=== PATIENT | female | born 1965 | race Caucasian/White ===

== ENCOUNTER 2017-07-01 07:31 | Day surgery (SDC) | payer BC ==
[~2017-07-01 07:31] MED LIST: Lactated Ringers 1,000 ML IV SCH
[2017-07-01] MEDS ORDERED: fentaNYL 100 MCG/2 ML SDV ONE (11:33)
[2017-07-01] MEDS ORDERED: Midazolam 1 MG/ML 2 ML SDV ONE (11:33)
[2017-07-01] MEDS ORDERED: Propofol 200 MG/20 ML SDV ONE ×2 (11:33→12:09)
--- NOTE | 2017-07-01 18:48 | OR ---
PREOPERATIVE DIAGNOSIS: Screening colonoscopy. POSTOPERATIVE DIAGNOSIS: Transverse colon flattish polyp, removed. PLANNED PROPOSED: Total flexible colonoscopy. PROCEDURE DONE: Total flexible colonoscopy with polypectomy x1. INDICATION: This is a 52-year-old female who comes in for her first colonoscopic exam for screening purposes. There is a questionable history of her mother having had polyps. She denies any symptomatology herself. There is a negative family history for colon cancer. TECHNIQUE: The patient was brought to the endoscopy suite, placed in left lateral decubitus position. She was sedated per [employer] with propofol. The flexible video colonoscope was then passed transanally and under visualization advanced to the cecum. Examination revealed a normal ascending colon. In the proximal transverse colon, there was a flattish polyp, removed with 2 bites of the cold biopsy forceps and submitted for pathologic examination. The remainder of the descending colon was unremarkable. She had a rare occasional diverticular orifices noted in the sigmoid region and the rectum was normal, and the scope was then withdrawn. She tolerated procedure well. FINAL IMPRESSION: 1. Proximal transverse colon polyp, removed. 2. Minimal sigmoid diverticulosis. PLAN: She will be sent a letter with pathology report and I felt that she should consider, and I would recommend a followup examination again in 5 years' time and possibly every 5 years thereafter depending on the type of polyp, especially if there is a family history of polyps, she would want to keep a close eye on her colon. SCM: 07/01/2017 12:27:52 MODL: 07/01/2017 18:23:50 /[id number]
--- NOTE | 2017-07-19 08:26 | LETTER ---
07/19/2017 RE: ARABELLA GREGG : 1965 Dear Arabella, The polyp removed from your colon was a benign, serrated adenoma, which is considered a precancerous type polyp. Because of this finding, I feel that you should continue to have your colon evaluated every 5 years hereafter to make sure you are not forming any new polyps to help prevent you from getting a colon cancer. If you have any further questions regarding this, feel free to call. Respectfully,
== END 2017-07-01 13:35 | disposition home or self-care (01) ==
LOC: VM.SDS 07:31
PROVIDERS: ATTEND Surgery
DX: Z12.11 Encounter for screening for malignant neoplasm of colon (principal); D12.6 Benign neoplasm of colon, unspecified; K57.30 Diverticulosis of large intestine without perforation or abscess without bleeding; E78.2 Mixed hyperlipidemia; E89.0 Postprocedural hypothyroidism; G43.709 Chronic migraine without aura, not intractable, without status migrainosus; G89.29 Other chronic pain; M25.551 Pain in right hip; E66.3 Overweight; Z88.1 Allergy status to other antibiotic agents; Z88.8 Allergy status to other drugs, medicaments and biological substances; Z91.013 Allergy to seafood; F17.210 Nicotine dependence, cigarettes, uncomplicated; Z79.899 Other long term (current) drug therapy; Z68.26 Body mass index [BMI] 26.0-26.9, adult
CPT/HCPCS: 45380; J2250; J2704; J3010; J7120